=== PATIENT | female | born 1980 | race African-American/Black ===

== ENCOUNTER 2019-06-30 20:03 | Emergency (ER) | payer SELFPAY ==
[~2019-06-30] VITALS: Ht 180.3 cm; Wt 107.7 kg
[2019-06-30] MEDS ORDERED: IBUP-2354 PO (21:01)
[2019-06-30] MEDS ORDERED: NAPR220C15 PO (21:01)
[2019-06-30] MEDS ORDERED: KETOROLAC TROMETHAMINE 60 MG/2 ML VIAL IM ONE (22:00)
[2019-06-30] MEDS ORDERED: CARISOPRODOL 350 MG TABLET PO ONE (22:00)
[2019-06-30 22:22] VITALS: BP 112/74
== END 2019-06-30 22:25 | disposition home or self-care (01) ==
LOC: EMS 20:04
DX: M25.512 Pain in left shoulder (principal); Z79.899 Other long term (current) drug therapy
CPT/HCPCS: 96372; 99283; J1885